=== PATIENT | female | born 1990 | race Caucasian/White ===

== ENCOUNTER 2024-04-12 17:35 | Emergency (ER) | payer OTHER, SELFPAY ==
[2024-04-12 17:38] VITALS: BP 147/64
[2024-04-12 17:55] LABS: Urine Albumin Negative (Neg - Trace); Urine Bilirubin Negative (Negative); Urine Character Clear (Clear); Urine Color Yellow; Urine Glucose Negative (Negative); Urine Ketone Negative (Negative); Urine Leukocyte Negative (Negative); Urine Nitrite Negative (Negative); Urine Occult Blood Trace (Negative); Urine Specific Gravity 1.015 (<1.030); Urine Urobilinogen Negative (Neg - 1+)
[2024-04-12 18:04] LABS: Urine Squamous Cell 16-20 /LPF (Few)
[2024-04-12 18:04] LABS: % Basophils 0.4 % (0-2); % Immature Granulocytes 0.3 % (0-0.5); % Lymphocytes 25.9 % (20.5-51.1); % Neutrophils 68.4 % (42.2-75.2); Absolute Eosinophils 0.1 10^3/uL (0-0.7); Absolute Lymphocytes 2.6 10^3/uL (1.2-3.4); Absolute Monocytes 0.4 10^3/uL (0.1-0.6); Absolute Neutrophils 6.8 10^3/uL (1.4-6.5); Hematocrit 37.4 % (37.0-47.0); Hemoglobin 12.8 g/dL (12.0-16.0); Mean Corp Hgb Conc. 34.2 g/dL (33.0-37.0); Mean Corpuscular Volume 84.8 fL (81.0-99.0); Mean Platelet Volume 9.6 fL (7.4-10.4); Nucleated Red Blood Cells % 0 %; Platelet Count 310 10^3/uL (130-400); Red Blood Cell Count 4.41 10^6/uL (4.20-5.40)
[2024-04-12 18:06] LABS: Urine Bacteria Moderate (Negative); Urine Red Blood Cell 0-2 /HPF (0-2); Urine White Cell 0-2 /HPF (0-5); Urine Yeast Few (Negative)
[2024-04-12 18:08] LABS: HCG, Serum Qualitative Screen Negative
[2024-04-12 18:12] LABS: ALT (SGPT) 36 U/L (0-35); AST (SGOT) 41 U/L (14-36); Albumin 4.4 g/dl (3.5-5.0); Alkaline Phosphatase 55 U/L (38-126); Blood Urea Nitrogen 10 mg/dl (7-17); Calcium 9.5 mg/dl (8.4-10.2); Carbon Dioxide 26 mmol/L (22-30); Chloride 105 mmol/L (98-107); Glucose 100 mg/dl (70-99); Lipase 92 U/L (23-300); Potassium 4.3 mmol/L (3.5-5.1); Sodium 140 mmol/L (135-145); Total Bilirubin 0.3 mg/dl (0.2-1.3); Total Protein 6.9 g/dl (6.3-8.2); eGFR > 60.00
--- NOTE | 2024-04-12 20:16 | ED.GENMED ---
History of Present Illness
General
Chief Complaint: Urinary Symptoms
Source: patient
Exam Limitations: none
Time Seen by Provider: 04/12/24 19:40
History of Present Illness
History of Present Illness:
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 This was preceded by constipation. Typically she has a bowel movement 2-3
times every day however she has not had a bowel movement in 3 days and she notes she is bloated. She recently traveled from [place] for her wedding up here in [place]. She tried MiraLAX for her constipation without relief. She denies
vomiting chest pain. She notes chills but no measurable fever. No other complaints at this time
Past History
Past History
ED Past Medical History: Other (IBS)
ED Past Surgical History: None
Social History
Tobacco: Non-smoker
Alcohol: Occasional
Personal: Single
Living: with family
Phy Exam
Physical Exam
Physical Exam:
General: Well-appearing female no acute respiratory distress
HEENT: Normocephalic atraumatic
Heart: Regular rate and rhythm no murmurs
Lungs: Clear no wheeze
Abdomen soft nondistended normal bowel sounds nontender no guarding or rebound
Extremities: No cyanosis
Course
Orders/Labs/Results
Orders:
Orders
04/12/24 17:42
Test Result ONCE
04/12/24 17:47
Urinalysis Reflex To Culture Urgent
Date Specimen was Collected: 04/12/24
Time Specimen was Collected: 17:42
Urine Microscopic Reflex Cult Urgent
Urine Culture Urgent
LINA Source: U
Specimen Description:
Date Specimen was Collected: 04/12/24
Time Specimen was Collected: 17:42
04/12/24 17:48
Complete Blood Count/With Diff Urgent
Comprehensive Metabolic Panel Urgent
HCG, Serum Qualitative Screen Urgent
Comment: Notify provider if positive test present
Lipase Urgent
04/12/24 20:02
Cefdinir [Omnicef] 300 mg PO NOW STA
Magnesium Citrate [Citroma] 300 ml PO ONCE ONE
Abnormal Lab Results
04/12/24 04/12/24
17:47 17:48
Absolute Neuts (auto) 6.8 H 10^3/uL
(1.4-6.5)
Glucose 100 H mg/dl
(70-99)
AST 41 H U/L
(14-36)
ALT 36 H U/L
(0-35)
Ur Occult Blood Reflex Trace A
(Negative)
Urine Bacteria (Reflex) Moderate A
(Negative)
Urine Yeast Few A
(Negative)
04/12/24 17:48
04/12/24 17:48
Vital Signs
Initial and Last Documented VS:
Initial Vital Signs
Temp Pulse Resp BP Pulse Ox
99 F 82 16 147/64 100
04/12/24 17:38 04/12/24 17:38 04/12/24 17:38 04/12/24 17:38 04/12/24 17:38
Last Documented Vital Signs
Temp Pulse Resp BP Pulse Ox
99 F 82 16 147/64 100
04/12/24 17:38 04/12/24 17:38 04/12/24 17:38 04/12/24 17:38 04/12/24 17:38
MDM/Problems Addressed
Differential Diagnosis Includes:
Patient has urinary symptoms. UA with bacteria but not overwhelming for UTI. Had this discussion with the patient. Given her symptoms of frequency and dysuria and some bacteria will cover for the potential of UTI pending culture. She is also
constipated but abdomen exam is soft and reassuring. Do not SPECT bowel obstruction diverticulitis. Considered imaging of the abdomen but not performed at this time treat with Omnicef and magnesium citrate.
*Critical Care Note
Total Time (30-74mins, 75-104mins- exclusive of procedures): Not Applicable
ED Attending Note
-
Portions of this chart may have been created with voice recognition software.� Occasional wrong word or��sound alike� substitutions may have occurred due to the inherent limitations of voice recognition software.
Discharge Plan
Departure
Patient Disposition: Home (Routine Discharge)
Date of Disposition: 04/12/24
Time of Disposition: 20:35
Patient with high blood pressure during this ER visit?: No
Discharge Problem:
UTI (urinary tract infection), Constipation
Instructions: Urinary Tract Infection, Adult (DC)
Prescriptions:
New
cefdinir 300 mg capsule
300 mg PO BID Qty: 14 0RF
No Action
ondansetron 4 mg tablet,disintegrating
4 mg PO Q8HPRN PRN (Reason: nausea and vomiting) Qty: 10 0RF
ondansetron HCl 4 mg tablet
4 mg PO Q6H PRN (Reason: nausea and vomiting) Qty: 14 0RF
Referrals:
NONE,* [Family Provider] -
Activity Restrictions/Additional Instructions:
Drink plenty of fluids. Take antibiotic as directed. Use magnesium citrate as directed. Return if worse otherwise
Interventions
Interventions:
*Risk Screen - Suicide Last Done: 04/12/24 17:37
*General Assessment Last Done: 04/12/24 20:58
*Neglect/Abuse Screening Last Done: 04/12/24 17:37
*Nursing Disposition Last Done: 04/12/24 20:58
ED-Female Genitourinary Assessment Last Done: 04/12/24 19:40
Discharge Date and Time
Discharge Date/Time: 04/12/24 20:58
Print Language: UPPER SORBIAN
[2024-04-12] MEDS: CITROMA 300 ML PO (20:21)
[2024-04-12] MEDS: OMNICEF 300 MG PO (20:21)
== END 2024-04-12 20:58 | disposition home or self-care (01) ==
LOC: EMR 17:35
PROVIDERS: Emergency Medicine; EMERGENCY PHYSICIAN Emergency Medicine
DX: N39.0 Urinary tract infection, site not specified (principal); K59.00 Constipation, unspecified
CPT/HCPCS: 99283; 80053; 81003; 81015; 83690; 84703; 85025; 87086